=== PATIENT | female | born 1975 | race Caucasian/White ===

== ENCOUNTER → 2019-04-25 | Outpatient (CLI) | payer OTHER ==
--- NOTE | 2019-04-25 12:37 | RADIOLOGY REPORT (SQ) ---
EXAM DESCRIPTION: FOOT RIGHT COMPLETE COMPLETED DATE/TIME: 04/25/2019 9:43 am REASON FOR STUDY: PAIN IN RT FOOT M79.671 PAIN IN RIGHT FOOT M79.672 PAIN IN LEFT FOOT COMPARISON: None. NUMBER OF VIEWS: Three views. TECHNIQUE: AP, lateral and oblique radiographic images acquired of the right foot. LIMITATIONS: None. FINDINGS: MINERALIZATION: Normal. BONES: Prominent plantar calcaneal enthesophyte with perpendicular oriented lucency, likely fractured . No additional fractures identified. No suspicious osseous lesions. Trigonal process noted. JOINTS: No effusions. SOFT TISSUES: No soft tissue swelling. No foreign body. OTHER: No other significant finding. IMPRESSION: Likely fractured prominent plantar calcaneal enthesophyte. No additional evidence of acute bony abnormality. TECHNICAL DOCUMENTATION: JOB ID: [id number] 2013 [employer]- All Rights Reserved Reading location - IP/workstation name: [email or web address]
--- NOTE | 2019-04-25 12:38 | RADIOLOGY REPORT (SQ) ---
EXAM DESCRIPTION: FOOT LEFT COMPLETE COMPLETED DATE/TIME: 04/25/2019 9:43 am REASON FOR STUDY: PAIN IN LEFT FOOT M79.671 PAIN IN RIGHT FOOT M79.672 PAIN IN LEFT FOOT COMPARISON: None. NUMBER OF VIEWS: Three views. TECHNIQUE: AP, lateral and oblique radiographic images acquired of the left foot. LIMITATIONS: None. FINDINGS: MINERALIZATION: Normal. BONES: No acute fracture or dislocation. No worrisome bone lesions. Small plantar calcaneal entheso phyte. JOINTS: No effusions. SOFT TISSUES: No soft tissue swelling. No foreign body. OTHER: No other significant finding. IMPRESSION: NEGATIVE STUDY OF THE LEFT FOOT. NO RADIOGRAPHIC EVIDENCE OF ACUTE INJURY. TECHNICAL DOCUMENTATION: JOB ID: [id number] [employer]- All Rights Reserved Reading location - IP/workstation name: [email or web address]
== END ==
LOC: OD 09:12
PROVIDERS: ATTEND Family Medicine
DX: M77.31 Calcaneal spur, right foot (principal); M77.32 Calcaneal spur, left foot; M79.671 Pain in right foot; M79.672 Pain in left foot

== ENCOUNTER 2019-08-28 06:43 | Day surgery (SDC) | payer OTHER ==
[2019-08-23 10:29] LABS: HEMATOCRIT 31.5 % (36.0-47.0); HEMOGLOBIN 10.4 g/dL (12.0-15.5); MEAN CORPUSCULAR HGB CONC 32.9 g/dL (32.0-36.0); MEAN CORPUSCULAR VOLUME 76 fl (80-97); PLATELET COUNT 276 10^3/uL (150-450); RED BLOOD COUNT 4.14 10^6/uL (3.72-5.28); RED CELL DISTRIBUTION WIDTH 15.5 % (11.5-14.0); WHITE BLOOD COUNT 6.6 10^3/uL (4.0-10.5)
[2019-08-23 10:36] LABS: APPEARANCE,URINE CLEAR; BILIRUBIN,URINE NEGATIVE (NEGATIVE); COLOR,URINE YELLOW; GLUCOSE, URINE NEGATIVE (NEGATIVE); KETONES,URINE NEGATIVE (NEGATIVE); LEUKOCYTE ESTERASE,URINE NEGATIVE (NEGATIVE); NITRITE,URINE NEGATIVE (NEGATIVE); PROTEIN,URINE NEGATIVE (NEGATIVE); URINE SPECIFIC GRAVITY 1.024; UROBILINOGEN,URINE NEGATIVE mg/dL (<2.0)
[~2019-08-28 06:43] MED LIST: LACTATED RINGERS 1000 ML IV PRN; LIDOCAINE 0.5% INJ-PF (5 MG/ML) 50 ML SDV SUBCUT PRN
[2019-08-28] MEDS ORDERED: ONDANSETRON HCL INJ/PF 4 MG/2 ML SDV ONE (08:23)
[2019-08-28] MEDS ORDERED: PROPOFOL INJ 200 MG/20 ML VIAL IV ONE (08:23)
[2019-08-28] MEDS ORDERED: FENTANYL CITRATE INJ/PF 100 MCG/2 ML AMPUL ONE (08:23)
[2019-08-28] MEDS ORDERED: MIDAZOLAM 2 MG/2 ML INJ ONE (08:23)
[2019-08-28] MEDS ORDERED: ONDANSETRON HCL INJ/PF 4 MG/2 ML SDV IV PRN (08:53)
[2019-08-28] MEDS ORDERED: PROMETHAZINE HCL INJ 25 MG/1 ML VIAL IV PRN (08:53)
[2019-08-28] MEDS ORDERED: MEPERIDINE HCL/PF INJ 25 MG/1 ML DISP.SYRIN IV PRN (08:53)
[2019-08-28] MEDS ORDERED: FENTANYL CITRATE INJ/PF 100 MCG/2 ML AMPUL IV PRN ×3 (08:53)
[2019-08-28] MEDS ORDERED: DIPHENHYDRAMINE HCL 50 MG/ML VIAL IV PRN (08:53)
[2019-08-28] MEDS ORDERED: MORPHINE SULFATE 10 MG/ML INJ IV PRN (08:53)
[2019-08-28] MEDS ORDERED: KETOROLAC TROMETHAMINE INJ/PF 30 MG/1 ML SDV IV PRN (09:12)
[2019-08-28] MEDS ORDERED: OXYCODONE-ACETAMINOPHEN 5-325 MG TABLET PO PRN ×2 (09:12)
[2019-08-28] MEDS ORDERED: IBUPROFEN 800 MG TABLET PO PRN (09:12)
[2019-08-28] MEDS ORDERED: RINGERS SOLUTION,LACTATED 1,000 ML IV PRN (09:12)
--- NOTE | 2019-08-28 09:17 | Operative Report ---
Operative Report DATE OF SURGERY: 08/28/19 PREOPERATIVE DIAGNOSIS: Uterine polyps POSTOPERATIVE DIAGNOSIS: Same OPERATION: D&C hysteroscopy SURGEON: JONI PATRICIO ANESTHESIA: LMAC TISSUE REMOVED OR ALTERED: Endocervical and uterine curettings COMPLICATIONS: None ESTIMATED BLOOD LOSS: 40 cc INTRAOPERATIVE FINDINGS: Multiple uterine polyps noted PROCEDURE: Patient was taken the OR and placed in supine position. Anesthesia was induced. She is placed in dorsolithotomy position using Greg stirrups. She had voided and catheterization was not needed. Speculum was placed in the vagina and the anterior lip cervix was grasped with a tenaculum. The uterus sounded to 8 cm before and after the case. Cervix was gently dilated. Hysteroscopy was performed which showed numerous uterine polyps. A endocervical curetting was obtained. Uterine curetting was performed. Polyp forceps also were used. The polyps were removed. Repeat hysteroscopy showed a empty uterine cavity. All instruments removed she is placed back in supine position taken recovery in stable condition.
--- NOTE | 2019-08-28 09:19 | Discharge Summary ---
Discharge Summary (SDC) - Discharge Final Diagnosis: Uterine polyps Date of Surgery: 08/28/19 Discharge Date: 08/28/19 Condition: Good Forms: ASU Anesthesia D/C Instruction, Discharge POC-Surgical Service Referrals: JONI PATRICOI MD [ACTIVE STAFF] - Discharge Diet: Regular Discharge Activity: Activity As Tolerated, Pelvic Rest Home Care Assistance: None Needed Report the Following to Your Physician Immediately: Fever over 101 Degrees
[2019-08-28] MEDS ORDERED: IBUPROFEN 800 MG TABLET ONE (10:00)
[2019-08-28 11:35] VITALS: BP 114/77
== END 2019-08-28 11:05 | disposition home or self-care (01) ==
LOC: OROUT 06:43
PROVIDERS: ATTEND Obstetrics & Gynecology
DX: N94.89 Other specified conditions associated with female genital organs and menstrual cycle (principal); J45.909 Unspecified asthma, uncomplicated; N84.0 Polyp of corpus uteri
CPT/HCPCS: 36415 ×2; 84703; 85027; 81001; 88305 ×2; 00952; 58558; J2250; J3010; J2405; J2704; 952

== ENCOUNTER → 2020-04-01 | Outpatient (CLI) | payer OTHER ==
--- NOTE | 2020-04-01 16:34 | RADIOLOGY REPORT (SQ) ---
EXAM DESCRIPTION: CT ABD/PELVIS COMBO IMAGES COMPLETED DATE/TIME: 04/01/2020 2:48 pm REASON FOR STUDY: GENERALIZED ABDOMINAL PAIN R10.84 GENERALIZED ABDOMINAL PAIN R10.2 PELVIC AND PE RINEAL PAIN COMPARISON: None. TECHNIQUE: CT scan of the abdomen and pelvis performed with and without intravenous contrast, and wi th oral contrast. Contrasted imaging performed helical scanning technique and dynamic intravenous con trast injection. Images reviewed with lung, soft tissue, and bone windows. Reconstructed coronal and sagittal MPR images reviewed. Delayed images for evaluation of the urinary system also acquired. All images stored on PACS. All CT scanners at this facility use dose modulation, iterative reconstruction, and/or weight based d osing when appropriate to reduce radiation dose to as low as reasonably achievable (ALARA). [facility]: Dose Right [facility]: CareDose [facility]: Dose Right [facility]: Teradose 4D [facility]: Flowdock CONTRAST TYPE AND DOSE: contrast/concentration: Isovue 350.00 mmol/ml; Total Contrast Delivered: 73. 0 ml; Total Saline Delivered: 40.0 ml RENAL FUNCTION: None required. The patient is less than 50 years old. RADIATION DOSE: CT Rad equipment meets quality standard of care and radiation dose reduction techniq ues were employed. CTDIvol: 5.5 - 7.4 mGy. DLP: 890 mGy-cm. . LIMITATIONS: None. FINDINGS: NON-CONTRASTED IMAGING: Bilateral nonobstructing nephroliths. No calcifications are seen within the bladder. No other significant visceral calcifications. POST-CONTRASTED IMAGING: LOWER CHEST: No significant findings. No nodules or infiltrates. LIVER: Normal size. No masses. No dilated ducts. SPLEEN: Normal size. No focal lesions. PANCREAS: No masses. No significant calcifications. No adjacent inflammation or peripancreatic fluid collections. Pancreatic duct not dilated. GALLBLADDER: Surgically absent. ADRENAL GLANDS: Mild nodularity of the left adrenal gland. No significant masses. RIGHT KIDNEY AND URETER: No solid masses. Nonobstructing nephroliths. No hydronephrosis or hydrou reter. LEFT KIDNEY AND URETER: No solid masses. Nonobstructing nephroliths. No hydronephrosis or hydrour eter. AORTA AND VESSELS: No aneurysm. No dissection. Renal arteries, SMA, celiac without stenosis. RETROPERITONEUM: No retroperitoneal adenopathy, hemorrhage or masses. BOWEL AND PERITONEAL CAVITY: No masses or inflammatory changes. No free fluid or peritoneal masses. APPENDIX: Not visualized. PELVIS: No mass. No free fluid. The bladder is normal in appearance. The uterus appears mildly het erogeneous ; this is of uncertain etiology or significance. 2 hypoattenuating lesions (approximately 2 cm and 2.4 cm) within the left adnexa demonstrate indeterminate Hounsfield units, possibly on the basis of hemorrhagic cysts. ABDOMINAL WALL: No masses. No hernias. BONES: No significant or acute findings. OTHER: No other significant finding. IMPRESSION: No evidence of acute intra-abdominal infectious/inflammatory process. Status post blanca cystectomy. Nonobstructing nephrolithiasis. 2 hypoattenuating lesions within the left adnexa demons trating indeterminate Hounsfield units; consider further evaluation with pelvic ultrasound. TECHNICAL DOCUMENTATION: JOB ID: [id number] Quality ID # [id number]: Final reports with documentation of one or more dose reduction techniques (e.g., Au tomated exposure control, adjustment of the mA and/or kV according to patient size, use of iterative reconstruction technique) 2010 [employer]- All Rights Reserved Reading location - IP/workstation name: [email or web address]-
== END ==
LOC: RAD 11:25
PROVIDERS: ATTEND Family Medicine
DX: N20.0 Calculus of kidney (principal); R10.84 Generalized abdominal pain; R10.2 Pelvic and perineal pain
CPT/HCPCS: 74178